=== PATIENT | female | born 1945 | race Caucasian/White ===

== ENCOUNTER 2020-06-12 10:53 | Outpatient (RCR) | payer MEDICARE, SELFPAY ==
[2020-06-12] MEDS: COVID-19 VACC, MRNA(PFIZER)/PF 30 MCG/0.3 ML SYRINGE IM (12:00)
[2020-07-03] MEDS: COVID-19 VACC, MRNA(PFIZER)/PF 30 MCG/0.3 ML SYRINGE IM (12:02)
== END 2020-09-04 23:59 ==
LOC: IMMUN 10:53
PROVIDERS: PCP Family Medicine; Visit Provider Family Medicine
DX: Z23 Encounter for immunization (principal)
CPT/HCPCS: 0001A; 0002A; 91300

== ENCOUNTER 2024-04-13 13:55 | Emergency (ER) | payer MEDICARE, SELFPAY ==
[2024-04-13 13:56] VITALS: BP 195/89; PULSE 89; RESP 18; TEMP 36.4; O2SAT 99; BMI 28.9
--- NOTE | 2024-04-13 14:32 | CT_ITS ---
EXAM: CT CERVICAL SPINE WITHOUT INTRAVENOUS CONTRAST CLINICAL INDICATION: injury TECHNIQUE: Helically acquired images were obtained of the cervical spine without intravenous contrast. 2D reformatted images were reviewed. This CT exam was performed using one or more of the following dose reduction techniques: automated exposure control, adjustment of the mA and/or kV according to patient size, and/or use of iterative reconstruction technique. RADIATION DOSE: CTDIvol = 14.41 mGy, DLP = 265.37 mGy-cm COMPARISON: No relevant prior studies available. FINDINGS: VERTEBRAE: No acute abnormality. No fracture. No traumatic subluxation. No discrete lytic or blastic abnormality. Normal alignment. Normal craniocervical junction and cervicothoracic junction. DISCS/SPINAL CANAL/NEURAL FORAMINA: Multilevel degenerative disc disease with loss of disc height and disc bulges. Question of significant disc protrusion worse to the left at C6-C7. MRI recommended. Multilevel neural foraminal narrowing. No critical stenosis. SOFT TISSUES: Unremarkable. No prevertebral soft tissue swelling. LYMPH NODES: Unremarkable. No cervical adenopathy. LUNG APICES: Unremarkable as visualized. Clear. CT/Spine Cervical without Contras IMPRESSION: No evidence of acute cervical spinal fracture or spondylolisthesis. Multilevel degenerative changes especially at C6-C7 where there may be disc protrusion. MRI recommended. Electronically Signed: Junior Kent MD at 15:58 EST ,
--- NOTE | 2024-04-13 14:32 | CT_ITS ---
STUDY: CT BRAIN WITHOUT CONTRAST REASON FOR EXAM: Female, 78 years old. head injury RADIATION DOSAGE (If Supplied By Facility): CTDIvol = ( 44.99 ) mGy, DLP = ( 779.24 ) mGycm TECHNIQUE: Transaxial CT imaging of the brain was performed without administration of intravenous contrast material. Individualized dose optimization techniques were used for this CT. COMPARISON: No relevant priors. FINDINGS: Normal soft tissue structures. Normal calvarium. Normal size ventricles and extra-axial spaces for the patient''s age. Normal white matter tracts of the cerebral hemispheres. Normal basal ganglia and thalami. Normal brainstem. Normal cerebellum. There is no intracranial hemorrhage. There are no findings of an acute ischemic infarction. Normal visualized paranasal sinuses. CT/Brain/Head without Contrast IMPRESSION: Normal unenhanced CT scan of the brain. Electronically Signed: Junior Kent MD at 15:54 EST ,
--- NOTE | 2024-04-13 14:36 | EX.ED.DYSGE1 ---
HPI History of Present Illness Chief Complaint: Head Injury Informant: patient and spouse/S.O. Narrative Narrative: 78-year-old female presenting to the emergency room head injury. Patient states that on Thursday she got out of bed went to the bathroom had a syncopal episode which she struck her head on the sink and then on the ground. She notes a laceration to the right high frontal area into the hairline. She notes bruising around the left eye. She denies any double vision blurry vision. She notes some mild neck discomfort which she states it feels more like soreness. She notes that she had a headache on Thursday but has not had any today for the past couple days. No nausea vomiting. States that she passed out because she believes that she got up too quickly. She has no chest pain shortness of breath. She saw her primary care doctor today who advised her to come to emergency for imaging of the brain. She does not take any blood thinners. PFSH PFSH Medical History no medical history Home Medications ?Medication ?Instructions ?Recorded ?Last Taken ?Type NK 04/13/24 Unknown History Allergy/AdvReac Type Severity Reaction Status Date / Time No Known Allergies Allergy Verified 04/13/24 13:56 Family History no significant family his Surgical History no surgical history Social History housing: house current occupational status: retired Smoking Status: Never smoker ROS ROS ED Constitutional Constitutional ED: Denies chills, fever(s) or weight loss Eyes Eyes: Denies blurry vision, change in vision or diplopia ENT ENT ED: Denies ear pain, rhinorrhea or sore throat Cardiovascular Cardiovascular: Denies chest pain, orthopnea, palpitations or racing heartbeat Respiratory/Chest Respiratory/Chest: Denies cough, dyspnea or orthopnea Gastrointestinal Gastrointestinal: Denies abdominal pain, diarrhea, nausea or vomiting Genitourinary Genitourinary ED: Denies dysuria, hematuria or urinary frequency Musculoskeletal Musculoskeletal: Reports neck pain; Denies arthralgias or myalgias Integumentary Reports other Details: Scalp laceration ; Denies abscess or rash Neurologic Neurologic: Reports headache(s); Denies weakness Psychiatric Psychiatric: Denies anxiety, depression, suicidal ideation or suicidal thoughts Endocrine Endocrinology: Denies polydipsia, polyphagia or polyuria Allergic/Immunologic Allergic/Immunologic ED: Denies mouth swelling, tongue swelling or urticaria EXAM Physical Exam Const Vital Signs: 04/13/24 13:56 04/13/24 14:40 04/13/24 15:56 Temperature 97.6 F L Temperature Source Temporal Pulse Rate 89 75 Respiratory Rate 18 16 Respiratory Effort Normal Non-Labored Respiratory Depth Normal Respiratory Pattern Normal Blood Pressure 195/89 H Blood Pressure Mean 124 Pulse Ox 99 98 97 Oxygen Delivery Method Room Air Room Air Room Air Positive well nourished and well developed General Appearance ED: well developed HEENT Reports normocephalic and moist mucous membranes HEENT Narrative: There is a healing scalp laceration on the high right parietal region. It appears to have early granulation tissue. No obvious signs of secondary infection. No palpable bony depressions. There is left periorbital ecchymosis from purple to green. There is no significant subconjunctival hemorrhage or hyphema seen. Extraocular motions are intact. No orbital rim depression. There is no malocclusion. Midface appears stable. No septal hematoma nasal deformity is noted. Eyes PERRL and EOMs intact bilaterally Neck no lymphadenopathy, supple and no JVD Neck Narrative: Mild tenderness to palpation of the neck musculature and with range of motion. No midline tenderness or step-offs. Resp normal respiratory effort and clear to auscultation bilaterally Cardio regular rate, regular rhythm and no murmurs GI normal to inspection, nondistended, normoactive bowel sounds and non-tender Palpation: soft Back/Spine no CVA tenderness and normal ROM Extremity normal to inspection General Extremety ED: Negative for edema General Extremity: Negative for edema Neuro oriented x3 and CN's II-XII intact bilaterally Sensorium / Orientation: alert Motor Exam: strength 5/5 throughout Psych mental status grossly normal Mood & Affect: Negative for depressed or tearful Skin no rashes or lesions noted and no wounds MDM MDM MDM Narrative Medical decision making narrative: Differential diagnosis includes but not limited to intracranial hemorrhage/hematoma skull fracture facial fracture cervical spine fracture cervical myofascial strain cardiogenic syncope orthostatic hypotension Patient has been doing well over the past several days. Her laceration is healing and because it is over 3 days old I think we should let it heal by secondary intention. A CT of the brain as well as cervical spine was obtained. These were read by radiology reviewed by myself. We do not see any obvious acute fracture or hemorrhage. Please see radiologist read for full discussion of degenerative changes at C6 and C7. Patient will be discharged home with supportive care return if worsening or concerns. Local wound care discussed with patient. History & Record Review Discussion w/independent historian: Patient and Significant other Radiography Diagnostic Testing: Clinical Impression(s) from Imaging Studies Brain CT 04/13/24 14:32 IMPRESSION: Normal unenhanced CT scan of the brain. Electronically Signed: Junior Kent MD at 15:54 EST , Cervical Spine CT 04/13/24 14:32 IMPRESSION: No evidence of acute cervical spinal fracture or spondylolisthesis. Multilevel degenerative changes especially at C6-C7 where there may be disc protrusion. MRI recommended. Electronically Signed: Junior Kent MD at 15:58 EST , Discharge Plan Triage Chief Complaint: Head Injury ED Provider: Paco Burns Dx/Rx/DC Orders Clinical Impression: Syncope, Laceration of scalp, Periorbital contusion of left eye, Acute cervical myofascial strain Instructions: ED Eye Contusion, ED Head Injury (Adult), ED Laceration, Old: Not Sutured, ED Neck Sprain or Strain Prescriptions: No Action NK Primary Care Provider: Santana Guajardo Referrals: Santana Guajardo MD [Primary Care Provider] - As Needed Activity Restrictions/Additional Instructions: Continued local wound care to the laceration. Antibiotic ointment such as triple antibiotic once a day. Be gentle with cleansing and drying your hair. Print Language: [place] Island[place] Disposition Disposition: Home, Self Care
[2024-04-13 14:40] VITALS: O2SAT 98
[2024-04-13 15:56] VITALS: PULSE 75; RESP 16; O2SAT 97
== END 2024-04-13 16:02 | disposition home or self-care (01) ==
PROVIDERS: Emergency Provider Emergency Medicine; PCP Family Medicine; Visit Provider Emergency Medicine
DX: S01.01XA Laceration without foreign body of scalp, initial encounter (principal); S16.1XXA Strain of muscle, fascia and tendon at neck level, initial encounter; S05.12XA Contusion of eyeball and orbital tissues, left eye, initial encounter; X58.XXXA Exposure to other specified factors, initial encounter; R55 Syncope and collapse